=== PATIENT | male | born 1985 | race American Indian/Alaskan Native ===

== ENCOUNTER 2016-12-09 04:23 | Emergency (ER) | payer OTHER ==
[2016-12-09] MEDS ORDERED: ONDANSETRON 2MG/ML, 2ML ONE (04:54)
[2016-12-09] MEDS ORDERED: LORazepam 2 MG/ML, 1ML ONE (04:55)
[2016-12-09] MEDS ORDERED: PANTOPRAZOLE 40 MG IV ONE (05:16)
[2016-12-09] MEDS ORDERED: THIAMINE 100 MG/ML, 2ML ONE (05:16)
[2016-12-09 05:57] VITALS: BP 116/69
[2016-12-09 06:02] LABS: BLOOD UREA NITROGEN 16 mg/dL (7-18)
[2016-12-09 06:06] LABS: ASPARTATE AMINO TRANSFERASE 96 U/L (15-37)
[2016-12-09] MEDS ORDERED: SODIUM CHLORIDE 0.9% 1,000ML IVBOLUS ONE (06:30)
== END 2016-12-09 07:37 | disposition home or self-care (01) ==
LOC: ED 07:31
DX: K29.21 Alcoholic gastritis with bleeding (principal)
CPT/HCPCS: 36415; 76700; 80048; 80076; 82040; 83690; 85025; 85610; 99285